=== PATIENT | female | born 2000 | race Caucasian/White ===

== ENCOUNTER 2019-10-08 06:03 | Inpatient (IN) ==
[2019-10-08] MEDS ORDERED: D5LR 1L W PITOCIN 10 UNITS/L 10 UNITS/1,000 ML BAG IV ONE (06:32)
[2019-10-08] MEDS ORDERED: D5 1/2 NS 1000 ML 1,000 ML IV ONE (06:33)
--- NOTE | 2019-10-08 07:03 | DR.OB ---
OB Quick Note - Assessment/Plan Assessment/Plan: L&D 10/08/19 at 6:55am S-No complaint. O-Afebrile,VSS [id number] with good LTV, +accel, no decel. CTX=occasional,mild CVX=1cm/50%/-1/VTX AROM with clear fluid. IUPC and FSE placed. A-IUP at 37 6/7 weeks for induction PIH +GBS P-Begin pitocin induction IV ABX in labor for +GBS F/U preeclamptic labs Anticipate
[2019-10-08] MEDS ORDERED: REGLAN INJ 10 MG VIAL IVP PRN ×3 (07:10→18:47)
[2019-10-08] MEDS ORDERED: MORPHINE SULFATE INJ 2 MG INJ IVP PRN (07:10)
[2019-10-08] MEDS ORDERED: AMPICILLIN VIAL 2 GRAM 2 G in NS 100 ML IV + SPIKE MINIBAG* 100 ML IV SCH (07:10)
[2019-10-08] MEDS ORDERED: NUBAIN INJ 200 MG VIAL MULTIDOSE IVP PRN (07:10)
[2019-10-08] MEDS ORDERED: PITOCIN IVP ONE (07:10)
[2019-10-08] MEDS ORDERED: D5LR 1L W PITOCIN 10 UNITS/L 10 UNITS/1,000 ML BAG IV PRN (07:10)
[2019-10-08] MEDS ORDERED: PHENERGAN INJ 25 MG IM PRN ×2 (07:10→17:29)
[2019-10-08] MEDS ORDERED: NS 100 ML IV 100 ML IV ONE ×3 (07:18→16:31)
[2019-10-08] MEDS ORDERED: AMPICILLIN VIAL 2 GRAM ONE (07:19)
[2019-10-08 07:52] LABS: URIC ACID 4.9 mg/dL (2.6-6.0)
[2019-10-08] MEDS: D5 1/2 NS 1000 ML 1,000 ML IV SCH ×2 (08:32→15:36)
[2019-10-08] MEDS: VSL#3 PO SCH ×2 (08:32→10:27)
[2019-10-08] MEDS: AMPICILLIN VIAL 1 GRAM 1 G in NS 50 ML IV + SPIKE MINIBAG* 50 ML IV SCH ×2 (08:32→15:36)
--- NOTE | 2019-10-08 12:08 | DR.OB ---
OB Quick Note - Assessment/Plan Assessment/Plan: L&D 10/08/19 at 12:05pm Pitocin=13mu/min. Ampicillin S-No complaint except more pressure with CTX. O-Afebrile,VSS YPO=113 with good LTV, +accel, no decel. CTX=q 1 1/2 to 2 min., 35-55mmHg CVX=1-2cm/75%/0 A-IUP at 37 6/7 weeks for induction PIH +GBS P-Cont. pitocin/ABX in labor Anticipate
[2019-10-08] MEDS ORDERED: AMPICILLIN VIAL 1 GRAM ONE (12:22)
[2019-10-08] MEDS ORDERED: LR 1000 ML IV 1,000 ML IV ONE ×2 (12:31→16:31)
[2019-10-08] MEDS ORDERED: NAROPIN EPIDURAL 0.2% + FENTANYL 90MCG 60 ML EPI ONE (13:55)
[2019-10-08] MEDS ORDERED: FENTANYL INJ 100 mcg ONE (13:55)
[2019-10-08] MEDS ORDERED: VERSED ONE (14:39)
[2019-10-08] MEDS ORDERED: PITOCIN ONE (14:39)
[2019-10-08] MEDS ORDERED: ANCEF VIAL 1 GRAM ONE (16:31)
[2019-10-08] MEDS ORDERED: D5 1/2 NS 1L W PITOCIN 20 UNITS/L 20 UNITS/1,000 ML BAG IV ONE ×2 (16:32→18:24)
--- NOTE | 2019-10-08 16:48 | DR.OB ---
OB Quick Note - Assessment/Plan Assessment/Plan: L&D 10/08/19 at 4:35pm S-No complaint. O-Afebrile,VSS YVO=963 with good LTV, +accel, no decel. CTX=q 1 1/2 to 3 min., about 35-65mmHg CVX=3cm/75%/0 (no change in 4 hours) A-IUP at 37 6/7 weeks with failure to dilate P-To C/S
[2019-10-08] MEDS ORDERED: XYLOCAINE 2% and EPINEPHRINE 1:100,000 ONE (16:49)
[2019-10-08] MEDS ORDERED: DILAUDID INJ ONE (17:05)
[2019-10-08] MEDS ORDERED: DILAUDID INJ IVP PRN (17:29)
[2019-10-08] MEDS ORDERED: BENADRYL INJ 50 MG VIAL IVP PRN ×2 (17:29→18:47)
[2019-10-08] MEDS ORDERED: ZOFRAN INJ 4 MG VIAL IVP PRN ×2 (17:29→18:47)
[2019-10-08] MEDS ORDERED: PERCOCET TAB 5/325 MG PO PRN (18:47)
[2019-10-08] MEDS ORDERED: ADACEL or BOOSTRIX TDaP VACCINE IM ONE ×2 (18:47→22:32)
[2019-10-08] MEDS ORDERED: NARCAN INJ IVP PRN (18:47)
[2019-10-08] MEDS ORDERED: ZANTAC PO PRN (18:47)
[2019-10-08] MEDS ORDERED: MYLICON TAB 80 MG CHEW PO PRN (18:47)
[2019-10-08] MEDS ORDERED: TORADOL 30 MG VIAL IVP PRN (18:47)
[2019-10-08] MEDS ORDERED: D5 1/2 NS 1000 ML 1,000 ML with PITOCIN 20 UNITS IV SCH ×2 (19:00)
[2019-10-09 05:14] LABS: HEMATOCRIT 26.8 % (36.0-47.0); HEMOGLOBIN 9.1 g/dL (12.0-16.0)
[2019-10-09] MEDS ORDERED: MOTRIN TAB 800 MG PO PRN (07:37)
[2019-10-09] MEDS: PRENATAL PLUS PO SCH (09:18)
[2019-10-09] MEDS: VSL#3 PO SCH (09:19)
[2019-10-09] MEDS: COLACE CAP 100 MG PO SCH ×2 (09:30→20:34)
[2019-10-09] MEDS: PERCOCET TAB 5/325 MG PO PRN ×3 (13:00→23:30)
[2019-10-09] MEDS: BACTROBAN TOPICAL OINT TOP SCH ×2 (15:30→22:35)
[2019-10-10] MEDS: PERCOCET TAB 5/325 MG PO PRN ×2 (03:53→08:16)
[2019-10-10] MEDS: BACTROBAN TOPICAL OINT TOP SCH (05:01)
[2019-10-10] MEDS: PRENATAL PLUS PO SCH (08:16)
[2019-10-10] MEDS: VSL#3 PO SCH (08:16)
[2019-10-10] MEDS: COLACE CAP 100 MG PO SCH (08:16)
[2019-10-10 09:22] VITALS: BP 133/60
== END 2019-10-10 11:45 | disposition home or self-care (01) | DRG 788 ==
LOC: LD 06:03 → MED/SURG 18:49
PROVIDERS: ADMIT Specialist; ATTEND Specialist
CPT/HCPCS: 36415; 83615; 84450; 84460; 84550; 85014; 85018; 85384; 85610; 85730; 86850; 86900; 86901; A4216; A4222; S0197; J0290; J0690; J1170; J1885; J2001; J2250; J2405; J2590; J3010; J3490; J7050; J7120; S5010